=== PATIENT | male | born 1945 | race Caucasian/White ===

== ENCOUNTER 2021-12-25 17:17 | Emergency (ER) | payer OTHER ==
[~2021-12-25] VITALS: Wt 89.8 kg
[2021-12-25] MEDS ORDERED: ACETAMINOPHEN12.5 ML PO (17:49)
[2021-12-25] MEDS ORDERED: ACIDOPHILUS1 EAC4 PO (17:49)
[2021-12-25 18:16] LABS: BASO % 0.4 % (0.0-1.0); EOS # 0.1 10*3/uL (0.0-0.4); EOS % 1.4 % (1.0-4.0); HEMATOCRIT 44.2 % (42.0-52.0); LYMPH # 2.1 10*3/uL (1.3-4.4); LYMPH % 30.8 % (27.0-41.0); MEAN CELL VOLUME 93.2 fl (80.0-94.0); MEAN CORPUSCULAR HGB 29.7 pg (27.0-31.0); MEAN CORPUSCULAR HGB CONC 31.9 g/dl (33.0-37.0); MEAN PLATELET VOLUME 10.3 fl (9.6-12.3); MONO # 0.5 10*3/uL (0.1-1.0); MONO % 7.3 % (3.0-9.0); NEUT # 4.2 10*3/uL (2.3-7.9); PLATELET COUNT AUTOMATED 207 10*3/uL (130-400); RED BLOOD COUNT 4.74 10*6/uL (4.50-5.90); RED CELL DISTRI WIDTH 14.4 % (0-14.5); WHITE BLOOD COUNT 6.9 10*3/uL (4.8-10.8)
[2021-12-25 18:34] LABS: ALKALINE PHOSPHATASE 76 U/L (45-117); BUN 24 mg/dl (7-24); CHLORIDE 107 mmol/L (98-107); CREATININE 1.32 mg/dL (0.70-1.30); POTASSIUM 4.6 mmol/L (3.5-5.1); SGOT/AST 15 IU/L (3-35); SGPT/ALT 19 U/L (12-78); SODIUM 139 mmol/L (136-145)
== END 2021-12-25 22:17 | disposition home or self-care (01) ==
LOC: ED 17:17
PROVIDERS: Physician Assistant
DX: R53.1 Weakness (principal); R53.83 Other fatigue